=== PATIENT | female | born 1955 | race Caucasian/White ===

== ENCOUNTER 2017-04-15 14:10 | Emergency (ER) | payer BC ==
[2017-04-15] MEDS ORDERED: ACETAMINOPHEN-CODEINE 300/30MG TAB ONE (14:39)
== END 2017-04-15 15:56 | disposition home or self-care (01) ==
LOC: EDH 14:10
DX: S62.344A Nondisplaced fracture of base of fourth metacarpal bone, right hand, initial encounter for closed fracture (principal); S43.491A Other sprain of right shoulder joint, initial encounter; K21.9 Gastro-esophageal reflux disease without esophagitis; W18.39XA Other fall on same level, initial encounter; Y93.01 Activity, walking, marching and hiking; Y92.89 Other specified places as the place of occurrence of the external cause; Y99.8 Other external cause status
CPT/HCPCS: 29125; 73030; 73110